=== PATIENT | male | born 1960 | race Caucasian/White ===

== ENCOUNTER 2019-11-25 21:54 | Inpatient (IN) | payer OTHER ==
[2019-11-25 22:29] LABS: Absolute Lymphocytes (CBC) 2.3 K/uL (0.7-4.9); Basophils % 1.2 % (0-1.3); Hematocrit 48.3 % (39.6-49.0); Lymphocytes % 21.3 % (15.3-44.8); MPV 8.4 fL (7.6-11.3); RBC Red Blood Cell Count 5.39 M/uL (4.33-5.43)
--- NOTE | 2019-11-25 22:29 | RAD REPORT ---
EXAM DESCRIPTION: RAD - Chest Single View - 11/25/2019 10:24 pm CLINICAL HISTORY: CHEST PAIN Chest pain. COMPARISON: No comparisons FINDINGS: Portable technique limits examination quality. The lungs are grossly clear. The heart is upper limit normal size. No displaced fractures. IMPRESSION: No acute intrathoracic process suspected.
[2019-11-25 22:47] LABS: Protime INR 0.95
[2019-11-25 23:01] LABS: ALT/SGPT 26 U/L (12-78); AST/SGOT 16 U/L (15-37); Albumin 3.8 g/dL (3.4-5.0); Alkaline Phosphatase 101 U/L (45-117); BUN Blood Urea Nitrogen 12 mg/dL (7-18); Bicarbonate 28 mmol/L (21-32); Bilirubin Direct 0.2 mg/dL (0-0.2); Bilirubin Total 0.5 mg/dL (0.2-1.0); Glucose Level 202 mg/dL (74-106); Magnesium 2.2 mg/dL (1.8-2.4); NT PRO-BNP 62 pg/mL (<125); Potassium 3.4 mmol/L (3.5-5.1); Sodium Level 138 mmol/L (136-145); Troponin (Emerg Dept Use Only) < 0.02 ng/mL (0.0-0.045)
--- NOTE | 2019-11-25 23:45 | EDPHYS ---
Physician Documentation [facility] Name: Lawrence Saucedo Age: 59 yrs Sex: Male : 1960 Arrival Date: 11/25/2019 Time: 21:55 Bed 2 Private MD: ED Physician Jeremías Miles HPI: 11/25 22:41 This 59 yrs old Male presents to ER via Ambulatory with complaints of Chest Pain, LEFT snw ARM PAIN. 22:41 The patient or guardian reports chest pain that is located primarily in the substernal snw area. Onset: suddenly, just prior to arrival, and became persistent. The pain radiates to the left arm. Associated signs and symptoms: Pertinent positives: nausea, shortness of breath. The chest pain is described as a pressure. Duration: The patient or guardian reports a single episode, that is still ongoing. Severity of pain: At its worst the pain was moderate. The patient has experienced a previous episode, approximately 3 years ago, and the symptoms today are exactly the same. The patient has not recently seen a physician. pt from [place], working. Historical: - Allergies: 22:01 No Known Allergies; ca1 - Home Meds: 22:01 aspirin 81 mg Oral chew [Active]; Nexium Oral [Active]; ca1 - PMHx: 22:01 CAD; ca1 - PSHx: 22:01 Stents; ca1 - Immunization history:: Adult Immunizations up to date, Flu vaccine is not up to date. - Coronavirus screen:: The patient has NOT traveled to [place] in the past 14 days. The patient has NOT had contact with known/suspected case of Coronavirus?. - Social history:: Smoking status: Patient reports the use of cigarette tobacco products, smokes two packs cigarettes per day. - Ebola Screening: : Patient negative for fever greater than or equal to 101.5 degrees Fahrenheit, and additional compatible Ebola Virus Disease symptoms Patient denies exposure to infectious person Patient denies travel to an Ebola-affected area in the 21 days before illness onset No symptoms or risks identified at this time. ROS: 22:40 Constitutional: Negative for fever, chills, and weight loss, Eyes: Negative for injury, snw pain, redness, and discharge, ENT: Negative for injury, pain, and discharge, Neck: Negative for injury, pain, and swelling. 22:40 Back: Negative for injury and pain, : Negative for injury, bleeding, discharge, and swelling, MS/Extremity: Negative for injury and deformity, Skin: Negative for injury, rash, and discoloration, Neuro: Negative for headache, weakness, numbness, tingling, and seizure. 22:40 Cardiovascular: Positive for chest pain, of the left arm and chest. 22:40 Respiratory: Positive for shortness of breath, at rest. 22:40 Abdomen/GI: Positive for nausea. Exam: 22:39 Constitutional: This is a well developed, well nourished patient who is awake, alert, snw and in no acute distress. Head/Face: Normocephalic, atraumatic. Eyes: Pupils equal round and reactive to light, extra-ocular motions intact. Lids and lashes normal. Conjunctiva and sclera are non-icteric and not injected. Cornea within normal limits. Periorbital areas with no swelling, redness, or edema. ENT: Nares patent. No nasal discharge, no septal abnormalities noted. Tympanic membranes are normal and external auditory canals are clear. Oropharynx with no redness, swelling, or masses, exudates, or evidence of obstruction, uvula midline. Mucous membranes moist. Neck: Trachea midline, no thyromegaly or masses palpated, and no cervical lymphadenopathy. Supple, full range of motion without nuchal rigidity, or vertebral point tenderness. No Meningismus. Chest/axilla: Normal chest wall appearance and motion. Nontender with no deformity. No lesions are appreciated. Respiratory: Lungs have equal breath sounds bilaterally, clear to auscultation and percussion. No rales, rhonchi or wheezes noted. No increased work of breathing, no retractions or nasal flaring. Back: No spinal tenderness. No costovertebral tenderness. Full range of motion. Skin: Warm, dry with normal turgor. Normal color with no rashes, no lesions, and no evidence of cellulitis. 22:39 Abdomen/GI: Soft, non-tender, with normal bowel sounds. No distension or tympany. No guarding or rebound. No evidence of tenderness throughout. MS/ Extremity: Pulses equal, no cyanosis. Neurovascular intact. Full, normal range of motion. Neuro: Awake and alert, GCS 15, oriented to person, place, time, and situation. Cranial nerves II-XII grossly intact. Motor strength 5/5 in all extremities. Sensory grossly intact. Cerebellar exam normal. Normal gait. Psych: Awake, alert, with orientation to person, place and time. Behavior, mood, and affect are within normal limits. 22:39 Cardiovascular: Rate: normal, Rhythm: regular, Pulses: no pulse deficits are appreciated, Heart sounds: normal. Vital Signs: 22:01 BP 141 / 77; Pulse 96; Resp 18 S; Temp 97.5(TE); Pulse Ox 96% on R/A; Weight 111.13 kg ca1 (R); Height 5 ft. 9 in. (175.26 cm) (R); Pain 8/10; 23:30 BP 147 / 79; Pulse 80; Resp 16; Pulse Ox 95% on R/A; jb4 02 00:30 BP 126 / 71; Pulse 79; Resp 16; Pulse Ox 95% on R/A; jb4 00:41 Pain 3/10; jb4 11/25 22:01 Body Mass Index 36.18 (111.13 kg, 175.26 cm) ca1 MDM: 11/25 22:09 Patient medically screened. danisha 22:51 ECG:. The patient was not given aspirin in the Emergency Department. Patient reports snw taking aspirin within the past 24 hours. JAVIER Risk Score: 1- Known CAD, 1 - ASA use in past 7 days, 1 - Recent [<24hrs] Severe Angina, TOTAL SCORE = 3. Data reviewed: vital signs, nurses notes. 23:45 Data interpreted: Pulse oximetry: on room air is 96 %. Interpretation: acceptable. snw Counseling: I had a detailed discussion with the patient and/or guardian regarding: the historical points, exam findings, and any diagnostic results supporting the discharge/admit diagnosis, the presence of at least one elevated blood pressure reading (>120/80) during this emergency department visit, lab results, radiology results, the need for further work-up and treatment in the hospital. Physician consultation: Attila Fink was called at 23:45, was contacted at 23:45, regarding admission, to the telemetry unit. 11/25 22:07 Order name: Basic Metabolic Panel; Complete Time: 23:06 snw 11/25 22:07 Order name: CBC with Diff; Complete Time: 22:36 snw 11/25 22:07 Order name: LFT's; Complete Time: 23:06 snw 0218 22:07 Order name: Magnesium; Complete Time: 23:06 snw 0218 22:07 Order name: NT PRO-BNP; Complete Time: 23:06 snw 0218 22:07 Order name: PT-INR; Complete Time: 22:50 snw 0218 22:07 Order name: Troponin (emerg Dept Use Only); Complete Time: 23:06 snw 18 22:07 Order name: XRAY Chest (1 view); Complete Time: 22:36 snw 0218 22:07 Order name: EKG; Complete Time: 22:08 snw 0218 22:07 Order name: Cardiac monitoring; Complete Time: 22:18 snw 0218 22:07 Order name: EKG - Nurse/Tech; Complete Time: 22:18 snw 0218 22:07 Order name: IV Saline Lock; Complete Time: 22:18 snw 0218 22:07 Order name: Labs collected and sent; Complete Time: 22:18 snw 18 22:07 Order name: O2 Per Protocol; Complete Time: 22:18 snw 0218 22:07 Order name: O2 Sat Monitoring; Complete Time: 22:18 snw EC:51 Rate is 94 beats/min. Rhythm is regular. QRS [place] is Normal. HI interval is normal. QRS snw interval is normal. QT interval is normal. Q waves are Present in leads II, III, aVF. Clinical impression: NSR w/ Non-specific ST/T Changes. Administered Medications: 11/26 00:00 Drug: Zofran 4 mg Route: IVP; Site: right antecubital; jb4 00:42 Follow up: Response: No adverse reaction; Nausea is decreased jb4 00:02 Drug: morphine 4 mg {Note: RASS SCORE 0.} Route: IVP; Site: right antecubital; jb4 00:41 Follow up: Pain 3/10 Adult; Response: No adverse reaction; Pain is decreased; RASS: jb4 Alert and Calm (0) Disposition: 09:00 Co-signature as Attending Physician, Jeremías Miles MD I agree with the assessment and danisha plan of care. Disposition: 11/25/19 23:44 Hospitalization ordered by Attila Fink for Observation. Preliminary diagnosis is Chest pain, unspecified. - Bed requested for Telemetry/MedSurg (observation). - Status is Observation. jb4 - Condition is Stable. - Problem is new. - Symptoms are unchanged. Signatures: Dispatcher [employer] EDMS Cristal Betts RN RN Jeremías Johnston MD MD cha Therrien, Shelly, DAT INSTRUCTOR-C DAT INSTRUCTOR-Csnw Kraig Zamorano RN RN jb4 Alma Paulino RN RN ca1 Corrections: (The following items were deleted from the chart) 00:28 11/25 23:44 Hospitalization Ordered by Attila Fink for Observation. Preliminary mw diagnosis is Chest pain, unspecified. Bed requested for Telemetry/MedSurg (observation). Status is Observation. Condition is Stable. Problem is new. Symptoms are unchanged. snw 11/26 00:50 00:28 11/25/2019 23:44 Hospitalization Ordered by Attila Fink for Observation. jb4 Preliminary diagnosis is Chest pain, unspecified. Bed requested for Telemetry/MedSurg (observation). Status is Observation. Condition is Stable. Problem is new. Symptoms are unchanged. mw
--- NOTE | 2019-11-25 23:45 | ER ---
Nurse's Notes [facility] Name: Lawrence Saucedo Age: 59 yrs Sex: Male : 1960 Arrival Date: 11/25/2019 Time: 21:55 Bed 2 Private MD: Diagnosis: Chest pain, unspecified Presentation: 11/25 21:58 Presenting complaint: Patient states: Chest pain started 15 minutes ago. Radiates to ca1 the L arm. I had a heart attack 3 years ago where they putr stents. This feels the same. Transition of care: patient was not received from another setting of care. Onset of symptoms was November 25, 2019. Risk Assessment: Do you want to hurt yourself or someone else? Patient reports no desire to harm self or others. Initial Sepsis Screen: Does the patient meet any 2 criteria? No. Patient's initial sepsis screen is negative. Does the patient have a suspected source of infection? No. Patient's initial sepsis screen is negative. Care prior to arrival: None. 21:58 Method Of Arrival: Ambulatory ca1 21:58 Acuity: PRINCESS 3 ca1 Historical: - Allergies: 22:01 No Known Allergies; ca1 - Home Meds: 22:01 aspirin 81 mg Oral chew [Active]; Nexium Oral [Active]; ca1 - PMHx: 22:01 CAD; ca1 - PSHx: 22:01 Stents; ca1 - Immunization history:: Adult Immunizations up to date, Flu vaccine is not up to date. - Coronavirus screen:: The patient has NOT traveled to [place] in the past 14 days. The patient has NOT had contact with known/suspected case of Coronavirus?. - Social history:: Smoking status: Patient reports the use of cigarette tobacco products, smokes two packs cigarettes per day. - Ebola Screening: : Patient negative for fever greater than or equal to 101.5 degrees Fahrenheit, and additional compatible Ebola Virus Disease symptoms Patient denies exposure to infectious person Patient denies travel to an Ebola-affected area in the 21 days before illness onset No symptoms or risks identified at this time. Screenin:05 Abuse screen: Denies threats or abuse. Nutritional screening: No deficits noted. jb4 Tuberculosis screening: No symptoms or risk factors identified. Fall Risk None identified. Assessment: 22:05 General: Appears in no apparent distress. uncomfortable, Behavior is calm, cooperative, jb4 appropriate for age. Pain: Complains of pain in chest Pain radiates to left arm Pain currently is 8 out of 10 on a pain scale. Quality of pain is described as burning, pressure, throbbing, Pain began 30 min ago. Neuro: Level of Consciousness is awake, alert, obeys commands, Oriented to person, place, time, situation. Cardiovascular: Heart tones S1 S2 present Patient's skin is warm and dry. Respiratory: Reports shortness of breath at rest Airway is patent Respiratory effort is even, unlabored, Respiratory pattern is regular, symmetrical, Breath sounds are clear bilaterally. GI: Reports nausea. : No signs and/or symptoms were reported regarding the genitourinary system. EENT: No signs and/or symptoms were reported regarding the EENT system. Derm: Skin is intact, Skin is pink, warm \T\ dry. Musculoskeletal: Circulation, motion, and sensation intact. Range of motion: intact in all extremities. 23:47 Reassessment: Patient appears in no apparent distress at this time. Patient and/or jb4 family updated on plan of care and expected duration. Pain level reassessed. Patient is alert, oriented x 3, equal unlabored respirations, skin warm/dry/pink. Pt reports pain is a 7/10, provider notified, see MAR for orders. 11/26 00:35 Reassessment: Patient appears in no apparent distress at this time. Patient and/or jb4 family updated on plan of care and expected duration. Pain level reassessed. Patient is alert, oriented x 3, equal unlabored respirations, skin warm/dry/pink. Pt reports pain has decreased to 3/10 Patient states feeling better. 00:45 Reassessment: Pt transferred upstairs. via wheelchair. IV patent, flushes with ease and jb4 gives good blood return. Site is clean dry and intact. Pt is A\T\O x 4 with no s/s of distress noted. Reports pain has decreased to 3/10 and nausea has decreased. Vital Signs: 11/25 22:01 BP 141 / 77; Pulse 96; Resp 18 S; Temp 97.5(TE); Pulse Ox 96% on R/A; Weight 111.13 kg ca1 (R); Height 5 ft. 9 in. (175.26 cm) (R); Pain 8/10; 23:30 BP 147 / 79; Pulse 80; Resp 16; Pulse Ox 95% on R/A; jb4 02 00:30 BP 126 / 71; Pulse 79; Resp 16; Pulse Ox 95% on R/A; jb4 00:41 Pain 3/10; jb4 0218 22:01 Body Mass Index 36.18 (111.13 kg, 175.26 cm) ca1 ED Course: 11/25 21:55 Patient arrived in ED. jg7 21:59 Triage completed. ca1 22:01 Arm band placed on right wrist. ca1 22:05 Patient has correct armband on for positive identification. Placed in gown. Bed in low jb4 position. Call light in reach. Side rails up X 1. child monitor on. Pulse ox on. NIBP on. 22:05 Patient maintains SpO2 saturation greater than 95% on room air. jb4 22:06 Corrina Vu FNP-C is [facility]. snw 22:06 Jeremías Miles MD is Attending Physician. snw 22:11 Kraig Zamorano, STEVE is Primary Nurse. jb4 22:18 Inserted saline lock: 20 gauge in right antecubital area, using aseptic technique. thomas Blood collected. 22:18 Initial lab(s) drawn, by wy, sent to lab. EKG done, by ED staff, reviewed by Jeremías Miles MD. 22:25 XRAY Chest (1 view) In Process Unspecified. EDMS 23:44 Attila Fink is Hospitalizing Provider. snw 11/26 00:43 No provider procedures requiring assistance completed. IV is patent, is intact, with jb4 fluids infusing freely, with good blood return, Patient admitted, IV remains in place. Administered Medications: 00:00 Drug: Zofran 4 mg Route: IVP; Site: right antecubital; jb4 00:42 Follow up: Response: No adverse reaction; Nausea is decreased jb4 00:02 Drug: morphine 4 mg {Note: RASS SCORE 0.} Route: IVP; Site: right antecubital; jb4 00:41 Follow up: Pain 3/10 Adult; Response: No adverse reaction; Pain is decreased; RASS: jb4 Alert and Calm (0) Outcome: 11/25 23:44 Decision to Hospitalize by Provider. snw 11/26 00:44 Admitted to Tele accompanied by tech, via wheelchair, room 403, with chart, Report jb4 called to STEVE Hahn Condition: stable Discharge instructions given to patient, Instructed on the need for admit, Demonstrated understanding of instructions. 00:50 Patient left the ED. jb4 Signatures: Dispatcher [employer] EDMS Corrina Vu, PARTS DEPARTMENT SUPERVISOR-C PARTS DEPARTMENT SUPERVISOR-Csnw Kraig Zamorano RN RN jb4 Stepahn Garner jp3 Alma Paulino RN RN ca1 [facility] jg7 Corrections: (The following items were deleted from the chart) 11/25 22:02 21:58 Acuity: PRINCESS 2 ca1 ca1
[2019-11-25] MEDS ORDERED: MORPHINE 4 MG/ML SYR ONE (23:58)
[2019-11-25] MEDS ORDERED: ONDANSETRON 4 MG/2 ML VIAL ONE (23:58)
--- NOTE | 2019-11-26 00:23 | P.HP ---
Certification for Inpatient Patient admitted to: Observation With expected LOS: <2 Midnights Practitioner: I am a practitioner with admitting privileges, knowledge of patient current condition, hospital course, and medical plan of care. Services: Services provided to patient in accordance with Admission requirements found in Title 42 Section 412.3 of the Code of Federal Regulations Patient History Date of Service: 11/26/19 Reason for admission: Chest pain History of Present Illness: 59-year-old gentleman with a history of coronary artery disease status post 2 stent present to the ED with a complaint of chest pain of onset 30 min prior to arrival to the ED. The patient reports left anterior chest pain radiating to the arm, described as pressure-like, worse with deep breathing and better with laying still. He reports a history of acid reflux for which he takes omeprazole. He reports nausea and shortness of breath associated with the chest pain. No sweating, no palpitation. Patient has been noncompliant with cardiology followup. He stated he ran out of his medications 1 year ago. His EKG in the ED did not show any acute ischemic changes. Initial troponin is negative. Chest x-ray shows no acute disease. The patient continues to smoke. Given patient's significant CAD risk factors, he is placed under observation for ACS rule out. Allergies No Known Allergies Allergy (Verified 11/26/19 00:53) Home Medications: Aspirin [Aspirin EC 325 MG] 1 tab PO DAILY 11/26/19 Esomeprazole Magnesium [Nexium] 1 tab PO DAILY 11/26/19 - Past Medical/Surgical History -: Coronary artery disease -: GERD -: Cardiac stent - Family History Father -: Heart disease Mother -: Heart disease - Social History Smoking Status: Current every day smoker Alcohol use: No CD- Drugs: No Place of Residence: Home Review of Systems Other: Except as documented, all other systems reviewed and negative. Physical Examination - Physical Exam General: Alert, In no apparent distress, Oriented x3 HEENT: Atraumatic, Normocephalic, Mucous membr. moist/pink, Sclerae nonicteric Neck: Supple, JVD not distended, No Thyromegaly Respiratory: Clear to auscultation bilaterally, Normal air movement Cardiovascular: No edema, Normal pulses, Regular rate/rhythm, Normal S1 S2 Capillary refill: <2 Seconds Gastrointestinal: Normal bowel sounds, Soft and benign, Non-distended, No tenderness Musculoskeletal: No swelling, No erythema Integumentary: No rashes, No erythema Neurological: Normal speech, Normal strength at 5/5 x4 extr, Cranial nerves 3- 12 intact - Studies Laboratory Data (last 24 hrs) 11/25/19 22:18: PT 11.2, INR 0.95 11/25/19 22:18: WBC 10.7, Hgb 16.4, Hct 48.3, Plt Count 210 11/25/19 22:18: Sodium 138, Potassium 3.4 L, BUN 12, Creatinine 1.04, Glucose 202 H, Magnesium 2.2, Total Bilirubin 0.5, AST 16, ALT 26, Alkaline Phosphatase 101 Assessment and Plan - Problems (Diagnosis) (1) Chest pain Current Visit: Yes Status: Acute (2) Coronary artery disease Current Visit: Yes Status: Chronic (3) H/O heart artery stent Current Visit: Yes Status: Chronic (4) GERD (gastroesophageal reflux disease) Current Visit: Yes Status: Chronic - Plan Place under observation. Telemetry Trend troponin Given patient's medical noncompliance and high CAD risk factors will order nuclear stress test if troponins come back negative. Check lipid profile. Aspirin, metoprolol, Lipitor. NTG p.r.n. Cardiology Consult. - Advance Directives Does patient have a Living Will: No Does patient have a Durable POA for Healthcare: No
[2019-11-26] MEDS ORDERED: NITROGLYCERIN 0.4 MG/TAB SL PRN (00:53)
[2019-11-26] MEDS ORDERED: MORPHINE 4 MG/ML SYR IV PRN (00:53)
[2019-11-26 01:00] VITALS: BMI 36.9
[2019-11-26] MEDS ORDERED: MAGNES/ALUMIN/SIMET 30ML UCUP PO PRN (01:31)
[2019-11-26 01:50] LABS: Troponin I 0.15 ng/mL (0.0-0.045)
[2019-11-26] MEDS ORDERED: PANTOPRAZOLE 40MG TABLET PO SCH (06:30)
[2019-11-26] MEDS ORDERED: INFLUENZA VACCINE (for 3y+) 0.5 ML DOSE IMVAC ONE (08:00)
[2019-11-26] MEDS: ASPIRIN EC 81 MG TAB PO SCH (08:17)
[2019-11-26] MEDS ORDERED: ENOXAPARIN 40 MG/0.4 ML SQ SCH (09:00)
[2019-11-26] MEDS ORDERED: METOPROLOL TAR 50 MG TAB PO SCH (09:00)
[2019-11-26] MEDS ORDERED: HEPA 1000U/500MLS 2,000 UNIT/1,000 ML BAG IV ONE (10:01)
[2019-11-26] MEDS ORDERED: MIDAZOLAM HCL 2 MG/2 ML INJ ONE ×2 (10:01→10:27)
[2019-11-26] MEDS ORDERED: NITROGLYCERIN 100 MCG/ML SYR (for cath lab use only) IV ONE (10:02)
[2019-11-26] MEDS ORDERED: ATROPINE SULF 1 MG/10 ML SYR IV ONE (10:02)
[2019-11-26] MEDS ORDERED: NITROGLYCERIN/D5W 25 MG/250 ML BTL IV ONE (10:02)
[2019-11-26] MEDS ORDERED: NA CHLORIDE 0.9% 50 ML ONE (10:02)
[2019-11-26] MEDS ORDERED: FENTANYL CITR 100 MCG/2 ML ONE (10:02)
[2019-11-26] MEDS ORDERED: NICARDIPINE HCL 25 MG/10 ML IV ONE (10:02)
[2019-11-26] MEDS ORDERED: HEPARIN 5000 UNIT/ML 1 ML VIAL ONE (10:04)
[2019-11-26] MEDS ORDERED: LIDOCAINE 1% MPF 30 ML VIAL ONE (10:06)
--- NOTE | 2019-11-26 10:19 | EKG ---
Test Date: 2019-11-26 Test Time: 05:22:40 Equity Holder: WADE MEASUREMENT RESULTS: Intervals: Rate: 77 ID: [id number] QRSD: 98 QT: 396 QTc: 448 [place]: P: 49 ID: [id number] QRS: 58 T: 60 INTERPRETIVE STATEMENTS: Normal sinus rhythm Low voltage QRS Borderline ECG Compared to ECG 11/25/2019 22:04:11 Myocardial infarct finding no longer present Electronically Signed On 11-26-19 10:18:59 TEXTILE CUTTING MACHINE OPERATOR by Bar Verma
--- NOTE | 2019-11-26 10:20 | EKG ---
Test Date: 2019-11-25 Test Time: 22:04:11 Stamp Collector: BARON MEASUREMENT RESULTS: Intervals: Rate: 94 MT: 154 QRSD: 88 QT: 374 QTc: 467 [place]: P: 63 MT: 154 QRS: 70 T: 25 INTERPRETIVE STATEMENTS: Normal sinus rhythm Low voltage QRS Possible Inferior infarct, age undetermined Abnormal ECG No previous ECG available for comparison Electronically Signed On 11-26-19 10:19:06 STAMP COLLECTOR by Bar Verma
[2019-11-26] MEDS ORDERED: NA CHLORIDE 0.9% 500 ML ONE (10:21)
[2019-11-26] MEDS ORDERED: PRASUGREL (EFFIENT) 10 MG TAB ONE (11:07)
[2019-11-26] MEDS ORDERED: MORPHINE 2 MG/ML SYR IV PRN (11:10)
--- NOTE | 2019-11-26 11:50 | P.PN ---
Subjective Date of Service: 11/26/19 Chief Complaint: Chest pain Subjective: Improving Patient seen and examined chart reviewed and case discussed with RN and Dr. Verma. Patient went for heart catheterization this morning. Found to have blockage and received a stent in the circumflex. Review of Systems 10-point ROS is otherwise unremarkable Cardiovascular: As per HPI Physical Examination - Vital Signs Temperature: 97.3 F Blood Pressure: 127/60 Pulse: 76 Respirations: 16 Pulse Ox (%): 97 - Physical Exam General: Alert, In no apparent distress, Oriented x3, Mild distress, Obese, Other (Ill-appearing male) HEENT: Atraumatic, PERRLA, EOMI Neck: Supple, JVD not distended Respiratory: Clear to auscultation bilaterally, Normal air movement Cardiovascular: No edema, Normal pulses, Regular rate/rhythm, Normal S1 S2 Gastrointestinal: Normal bowel sounds, Soft and benign, Non-distended, No tenderness Musculoskeletal: No tenderness Integumentary: No rashes, No erythema Neurological: Normal speech, Normal strength at 5/5 x4 extr, Normal tone, Cranial nerves 3-12 intact, Normal affect - Studies Laboratory Data (last 24 hrs) 11/26/19 04:35: Troponin I 0.42 H 11/26/19 01:09: Troponin I 0.15 H, Triglycerides 153 H, Cholesterol 172, HDL Cholesterol 38 L, Cholesterol/HDL Ratio 4.53 11/25/19 22:18: PT 11.2, INR 0.95 11/25/19 22:18: WBC 10.7, Hgb 16.4, Hct 48.3, Plt Count 210 11/25/19 22:18: Sodium 138, Potassium 3.4 L, BUN 12, Creatinine 1.04, Glucose 202 H, Magnesium 2.2, Total Bilirubin 0.5, AST 16, ALT 26, Alkaline Phosphatase 101 Assessment And Plan - Plan NSTEMI. Continue chest pain guidelines. Status post cardiac catheterization with stent in the circumflex. Continue with aspirin, Plavix, statin, beta alcon. Appreciate Dr. Verma's input. Coronary artery disease [place] artery t[place]ora heart with angina. Now with stent in circumflex. Continue home medications. Obesity BMI 36.9 due to excess calories. Gastroesophageal reflux disease without esophagitis. Continue Protonix DVT prophylaxis addressed. Likely Dc in the next 24-48 hr continues to be stable acute Discharge Plan: Home Plan to discharge in: 24 Hours
--- NOTE | 2019-11-26 12:04 | CON ---
Identification: 59-year-old man. Chief Complaint: Chest pain. History Of Present Illness: Mr. Saucedo has a definite history of coronary heart disease before he h ad unstable angina, underwent 2 stents in the same artery, we do not know which artery, roughly 3 yea rs ago at a hospital in [place]. Since then, he has had very little followup with the reel tender , finds it hard to get an appointment. 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 He also has gastroesophageal reflux di sease and takes Nexium. He is having lots of chest pain that feels like reflux, lots of chest pain t hat also feels like angina, radiates down his arm. He came to the hospital and enzymes were abnormal . EKGs do not show infarction, injury, or ischemia. Mr. Saucedo does not have diabetes. His blood pressure is low without being on any blood pressure medicines. He is not on a statin. Physical Examination: General: He is 5 feet 9 inches, 250 pounds, obese, alert, oriented, pleasant, not in distress. Lungs: Clear. Cardiac: Normal. No chest pain presently. Abdomen: Soft. Extremities: No edema. Distal pulses are palpable. Radial pulses are good. Vital Signs: Blood pressure 102/59, heart rate 70. Recommendations: I have recommended that Mr. Sauceod undergo cardiac cath, possible stent. The desmond ent seems to understand the procedure, its potential benefits, indications, risks, but at this point he has not agreed to proceed. He is making some calls to the family members and trying to get a hold of his other doctor, I believe in [place]. If the patient consents, we will proceed with cardiac catheterization. Thank you very much for your kind referral of Mr. Saucedo. I will follow him with you. KALPESH/AISHA Voice ID: [id number] Report ID: [id number]
[2019-11-26] MEDS ORDERED: ACETAMINOPHEN 325 MG TABLET PO PRN (15:43)
[2019-11-26] MEDS ORDERED: NA CHLORIDE 0.9% 1,000 ML IV SCH (16:00)
[2019-11-26] MEDS: METOPROLOL TAR 25 MG TAB PO SCH (20:18)
[2019-11-26] MEDS ORDERED: ATORVASTATIN 80 MG TAB PO SCH (21:00)
--- NOTE | 2019-11-26 21:34 | OP ---
Surgeon: Bar Verma MD Dyed Yarn Operator: Awa Haney. Procedure: Left heart catheterization with coronary left ventricular angiography, percutaneous coron blaise intervention of a 99% circumflex stenosis successfully stented with a 3.0 x 20 Synergy stent, 11 atmospheres, 0% residual stenosis. Procedure Findings: Patient had normal looking left main. The LAD from proximal to mid had previous ly placed LAD stents, they were widely patent. No in-stent restenosis was seen. Distal part of all of his vessels were mildly diffusely plaqued. The right coronary had moderate stenoses throughout 40 % to 50%. None of them seem to be the culprit lesion. The body of the circumflex just a centimeter before bifurcation into 2 large branches had a 99% stenosis. It was actually a long stenosis 40% to 50% for about 15 mm proximal to the 99% stenosis. This was the culprit lesion and was successfully s tented. Procedure In Detail: The patient had evidence of a [id number] DE. He gave informed consent. He was brought to the cardiac lab director in a fasting state, sedated with Versed and fentanyl, prepared and draped in usual sterile fashion. Right radial approach was used. We anesthetized the skin over the right radial artery using 1% lidocaine, entered the artery with a 21-gauge needle, cannulated th e artery with a 0.019 inch diameter guidewire, and then placed a 5/6-Ind[place]ian Terumo radial sheath. We gave a radial cocktail consisting of nicardipine, heparin, and nitroglycerin. We guided a TIG cameron ter into the ascending aorta using a short radius J-tip Glidewire and fluoroscopy. We angiogram the right and left coronary arteries and left ventricle all with the same TIG catheter. When the decisio n was made to do an intervention, we administered Angiomax, demonstrated an active clotting time grea ter than 400 seconds. We removed the TIG catheter over an exchange length J-wire and placed a XB LAD 3.5 with side holes into the ascending aorta, withdrew the guidewire, and we were able to place it i nto the left main ostium. We crossed the lesion with a Perley wire and then we were able to cross th e lesion with a 3.0 x 20 stent without pre-dilation and inflated to 11 atmospheres and had an excelle nt angiographic result. There were no complications. Estimated blood loss 10 cc. After the sheath was removed, catheters were removed of course first and then the sheath was removed and the arterioto my closed with a TR band. Complications: No complications. KALPESH/AISHA Voice ID: [id number] Report ID: [id number]
[2019-11-27 04:32] LABS: Potassium 4.2 mmol/L (3.5-5.1)
[2019-11-27 05:17] LABS: MPV 8.7 fL (7.6-11.3); RBC Red Blood Cell Count 5.28 M/uL (4.33-5.43)
[2019-11-27 05:26] VITALS: TEMP 97.1
[2019-11-27] MEDS ORDERED: PANTOPRAZOLE 40MG TABLET PO SCH (07:30)
[2019-11-27 08:15] VITALS: O2SAT 98
[2019-11-27] MEDS: METOPROLOL TAR 25 MG TAB PO SCH (08:16)
[2019-11-27] MEDS: ASPIRIN EC 81 MG TAB PO SCH (08:16)
[2019-11-27 08:17] VITALS: BP 116/62
[2019-11-27] MEDS ORDERED: CLOPIDOGREL 75 MG TABLET PO SCH (09:00)
--- NOTE | 2019-11-27 11:20 | P.DS ---
Admission Date: 11/26/19 Discharge Date: 11/27/19 Disposition: ROUTINE DISCHARGE Reason for Admission: Chest pain Consultations: Cardiology Dr. Verma Procedures: Cardiac stress test Cardiac catheterization with stent in the circumflex Brief History of Present Illness: From H and P 59-year-old gentleman with a history of coronary artery disease status post 2 stent present to the ED with a complaint of chest pain of onset 30 min prior to arrival to the ED. The patient reports left anterior chest pain radiating to the arm, described as pressure-like, worse with deep breathing and better with laying still. He reports a history of acid reflux for which he takes omeprazole. He reports nausea and shortness of breath associated with the chest pain. No sweating, no palpitation. Patient has been noncompliant with cardiology followup. He stated he ran out of his medications 1 year ago. His EKG in the ED did not show any acute ischemic changes. Initial troponin is negative. Chest x-ray shows no acute disease. The patient continues to smoke. Given patient's significant CAD risk factors, he is placed under observation for ACS rule out. Hospital Course: Patient is a 59-year-old male with past medical history of hypertension coronary artery disease who comes in with chest pain. Patient was started on chest pain guidelines. Cardiac enzymes were elevated and patient had NSTEMI. cardiac stress test was done. Patient was also taken for cardiac catheterization by Dr. Verma with cardiology. Patient required stent in the circumflex artery. Patient did well postoperatively. His chest pain resolved. He was counseled regarding smoking. Patient was then cleared for discharge from cardiology standpoint. He was discharged home in stable condition NSTEMI. Coronary artery disease upper [place] artery upper [place] heart with angina. Obesity BMI 36.9 due to excess calories. Gastroesophageal reflux disease without esophagitis. Vital Signs/Physical Exam: Temp Pulse Resp BP Pulse Ox 97.1 F 64 20 116/62 94 11/27/19 04:00 11/27/19 08:16 11/27/19 04:00 11/27/19 08:16 11/27/19 04:00 General: Alert, In no apparent distress, Oriented x3, Obese HEENT: Atraumatic, PERRLA, EOMI Neck: Supple, JVD not distended Respiratory: Clear to auscultation bilaterally, Normal air movement Cardiovascular: No edema, Normal pulses, Regular rate/rhythm, Normal S1 S2 Gastrointestinal: Normal bowel sounds, Soft and benign, Non-distended, No tenderness Musculoskeletal: No tenderness Integumentary: No rashes, No erythema Neurological: Normal speech, Normal tone, Cranial nerves 3-12 intact, Normal affect Laboratory Data at Discharge: WBC 9.7 K/uL (4.3-10.9) 11/27/19 04:55 Hgb 16.0 g/dL (13.6-17.9) 11/27/19 04:55 Hct 47.0 % (39.6-49.0) 11/27/19 04:55 Plt Count 214 K/uL (152-406) 11/27/19 04:55 PT 11.2 SECONDS (9.5-12.5) 11/25/19 22:18 INR 0.95 11/25/19 22:18 Sodium 139 mmol/L (136-145) 11/27/19 03:51 Potassium 4.2 mmol/L (3.5-5.1) 11/27/19 03:51 BUN 11 mg/dL (7-18) 11/27/19 03:51 Creatinine 0.88 mg/dL (0.55-1.3) 11/27/19 03:51 Glucose 107 mg/dL (74-106) H 11/27/19 03:51 Magnesium 2.2 mg/dL (1.8-2.4) 11/25/19 22:18 Total Bilirubin 0.5 mg/dL (0.2-1.0) 11/25/19 22:18 AST 16 U/L (15-37) 11/25/19 22:18 ALT 26 U/L (12-78) 11/25/19 22:18 Alkaline Phosphatase 101 U/L (45-117) 11/25/19 22:18 Troponin I 0.82 ng/mL (0.0-0.045) H* 11/26/19 08:54 Triglycerides 153 mg/dL (<150) H 11/26/19 01:09 Cholesterol 172 mg/dL (<200) 11/26/19 01:09 HDL Cholesterol 38 mg/dL (40-60) L 11/26/19 01:09 Cholesterol/HDL Ratio 4.53 11/26/19 01:09 Home Medications: Aspirin [Aspirin EC 325 MG] 1 tab PO DAILY 11/26/19 Esomeprazole Magnesium [Nexium] 1 tab PO DAILY 11/26/19 Atorvastatin Calcium [Lipitor] 80 mg PO BEDTIME #90 tab 11/27/19 Clopidogrel Bisulfate [Plavix] 75 mg PO DAILY #90 tablet 11/27/19 Metoprolol Succinate [Toprol Xl] 50 mg PO DAILY #90 tab 11/27/19 New Medications: Atorvastatin Calcium [Lipitor] 80 mg PO BEDTIME #90 tab Clopidogrel Bisulfate [Plavix] 75 mg PO DAILY #90 tablet Metoprolol Succinate [Toprol Xl] 50 mg PO DAILY #90 tab Patient Discharge Instructions: f/up w PCP in 2-3 days. f/up w cashier manager Dr. Verma in 2 weeks. Return to ER for worsening condition Diet: AHA Activity: Ad evita Followup: Bar Verma MD [ACTIVE - CAN ADMIT] - (call to schedule appointment) Time spent managing pt's care (in minutes): 37
--- NOTE | 2019-11-27 11:46 | PN ---
Subjective: The patient was admitted to Dr. Fink on 11/26/2019 with a non-ST elevation myocardial infarction. He was taken to the pie bakery laborer by Dr. Verma. He was found to have a patent LAD stent wit h some diffuse plaquing in the distal LAD, RCA had some diffuse plaquing and mild disease. There was a 99% mid circumflex with stent that was stented yesterday successfully. There was 0% residual. Th e procedure was done via right wrist approach. Today, his right wrist appeared to be intact. He has good radial pulses. He has no chest pain. Objective: VITAL SIGNS: Stable. He was afebrile. Chest: Clear. Cardiac: Normal. Telemetry showed no arrhythmias. Plan: He will be going home today. I gave him a prescription for aspirin, Plavix, Toprol, and Lipit or, and he will follow up with his fire range technician in [place] where he lives. He can go home today. ANASTACIO/AISHA Voice ID: [id number] Report ID: [id number]
== END 2019-11-27 10:50 | disposition home or self-care (01) | DRG 247 ==
LOC: ER 21:54 → ERHOLD 11-26 00:26 → 4TH 11-26 00:41 → OBSVTOIN 11-26 08:36
PROVIDERS: ADMIT Internal Medicine; ATTEND Internal Medicine
PROC: 027034Z Dilation of Coronary Artery, One Artery with Drug-eluting Intraluminal Device, Percutaneous Approach (ICD-10-PCS; principal; 2019-11-26)
PROC: 4A023N7 Measurement of Cardiac Sampling and Pressure, Left Heart, Percutaneous Approach (ICD-10-PCS; 2019-11-26)
PROC: B205YZZ Plain Radiography of Left Heart using Other Contrast (ICD-10-PCS; 2019-11-26)
PROC: B201YZZ Plain Radiography of Multiple Coronary Arteries using Other Contrast (ICD-10-PCS; 2019-11-26)
DX: I21.4 Non-ST elevation (NSTEMI) myocardial infarction (principal); I25.119 Atherosclerotic heart disease of native coronary artery with unspecified angina pectoris; E66.9 Obesity, unspecified; Z68.36 Body mass index [BMI] 36.0-36.9, adult; K21.9 Gastro-esophageal reflux disease without esophagitis; Z95.5 Presence of coronary angioplasty implant and graft; Z79.82 Long term (current) use of aspirin; F17.210 Nicotine dependence, cigarettes, uncomplicated; E87.6 Hypokalemia; E78.2 Mixed hyperlipidemia
CPT/HCPCS: 36415; 71045; 80048; 80061; 80076; 83735; 83880; 84484; 85025; 85027; 85347; 85610; 92928; 93005; 93458; 94760; 96374; 96375; 99285; C1725; C1893; G0378; J0583; J1644; J1650; J2250; J2405; J3010; J7040